=== PATIENT | female | born 1970 | race Caucasian/White ===

== ENCOUNTER → 2020-06-02 | Outpatient (CLI) | payer BC ==
--- NOTE | 2020-06-08 15:33 | RAD ---
EXAM: Bilateral digital screening mammogram with tomosynthesis. HISTORY: 50-year-old female presents for screening mammography. TECHNIQUE: Full-field digital craniocaudal and mediolateral oblique 2D and 3D tomosynthesis images of both breasts are obtained for evaluation. Computer aided detection was applied. COMPARISON: 01/04/2016 BREAST PARENCHYMAL DENSITY: Level C - Heterogeneously dense. FINDINGS: There is nodularity within the 9:00 position of the left breast at mid depth without a clear correlate on the prior study. There are other areas of nodularity and asymmetry which are stable in appearance when allowing for differences in technique. There is no architectural distortion or suspicious calcific lesion. IMPRESSION: BI-RADS Category 0: Incomplete. Additional imaging needed. RECOMMENDATION: Further evaluation with a full field true lateral view and spot compression views of nodularity within the [place] position of the left breast is recommended. Sonographic imaging can also be performed if deemed indicated based on additional mammographic findings. If your mammogram demonstrates that you have dense breast tissue, which could hide abnormalities, and if you have other risk factors for breast cancer that have been identified, you might benefit from supplemental screening tests that may be suggested by your ordering physician. Dense breast tissue, in and of itself, is a relatively common condition. This information is not provided to cause undue concern, but rather to raise your awareness and to promote discussion with your physician regarding the presence of other risk factors, in addition to dense breast tissue. A report of your mammography results will be sent to you and your physician. You should contact your physician if you have any questions or concerns regarding this report. Mammography is a sensitive method for finding small breast cancers, but it does not detect them all and is not a substitute for careful clinical examination. A negative mammogram does not negate a clinically suspicious finding and should not result in delay in biopsying a clinically suspicious abnormality. PQRS compliance statement - Patient information was entered into a reminder system with a target due date for the next mammogram. "Our facility is accredited by the [employer]." Electronically signed by: Lucille Hand MD (06/08/2020 3:30 PM) [id number]
== END ==
LOC: MAMMO 11:01
PROVIDERS: ATTEND Advanced Practice Midwife
DX: Z12.31 Encounter for screening mammogram for malignant neoplasm of breast (principal)
CPT/HCPCS: 77063; 77067

== ENCOUNTER → 2020-06-23 | Outpatient (CLI) | payer BC ==
--- NOTE | 2020-06-23 16:13 | RAD ---
Examination: 1. Left digital diagnostic mammogram. 2. Limited left breast ultrasound. INDICATION: 50-year-old woman recalled from screening for asymmetry in the lateral left breast. COMPARISON: Bilateral mammogram 06/02/2020 and 01/04/2016. TECHNIQUE: A full field left ML view and CC and MLO spot compression views of the left breast were obtained. Computer-aided detection was utilized. Targeted ultrasound of the lateral left breast was subsequently pursued. FINDINGS: The questioned asymmetry changes configuration in a pattern compatible with overlap of dense fibroglandular tissue. The breast tissue is heterogeneously dense. Targeted ultrasound of the lateral left breast revealed multiple sonographically benign cysts. Largest measured 7 mm. No suspicious sonographic findings. IMPRESSION: Benign findings on left diagnostic mammogram and targeted breast ultrasound. No evidence of malignancy. BI-RADS Category 2 Benign findings Recommend return to routine screening next due in one year. Patient entered into a reminder system with targeted due date for next mammogram. Electronically signed by: John Kincaid MD (06/23/2020 4:10 PM) [id number]
== END ==
LOC: MAMMO 12:48
PROVIDERS: ATTEND Advanced Practice Midwife
DX: R92.2 Inconclusive mammogram (principal); N60.02 Solitary cyst of left breast
CPT/HCPCS: 76641; 77065

== ENCOUNTER → 2021-07-02 | Outpatient (CLI) | payer BC ==
--- NOTE | 2021-07-02 16:01 | RAD ---
EXAMINATION: US BREAST BILAT, MG DIGITAL BILAT DIAGNOSTIC MAMMO WITH CINDY CLINICAL HISTORY: Follow-up abnormal mammogram TECHNIQUE: Digital craniocaudal and mediolateral oblique views of the bilateral breasts obtained with 3-D tomosynthesis. Targeted bilateral breast ultrasound also performed. COMPARISON: Mammograms 06/23/2020 and 06/02/2020; left breast ultrasound 06/23/2020 BREAST COMPOSITION: The breasts are heterogeneously dense, which may obscure small masses. FINDINGS: RIGHT: At 10:00 position 4.0-4.5 cm from the nipple, there are 2 adjacent cysts measuring up to 8 mm with corresponding masses seen mammographically. No evidence of suspicious calcifications or areas of architectural distortion. LEFT: At 2:00 position 7 cm from the nipple there is a probable cyst measuring 7 x 6 x 4 mm, previous ly 4 x 4 by 3 mm. At 3:00 position 7.5 cm from the nipple, there is a 8 x 6 x 5 mm cyst, previously 8 x 7 x 5 mm. 2 small corresponding mammographic asymmetries seen in this region on MLO view. No evide nce of suspicious calcifications or areas of architectural distortion. IMPRESSION: Benign-appearing cysts bilateral breasts as described. BI-RADS ASSESSMENT: Category 2: Benign RECOMMENDATION: Return for routine bilateral screening mammogram in one year. PQRS compliance statement - Patient information was entered into a reminder system with a target due date for the next mammogram. "Our facility is accredited by the [employer]." Electronically signed by: Merlin Adams DO (07/02/2021 3:59 PM) [id number]
== END ==
LOC: MAMMO 13:41
PROVIDERS: ATTEND Advanced Practice Midwife
DX: N60.02 Solitary cyst of left breast (principal); N60.01 Solitary cyst of right breast; R92.8 Other abnormal and inconclusive findings on diagnostic imaging of breast
CPT/HCPCS: 76641; 77066; G0279; 77062